=== PATIENT | female | born 1940 | race Caucasian/White ===

== ENCOUNTER 2020-03-13 01:17 | Emergency (ER) | payer OTHER, MEDICARE ==
--- OUTSIDE RECORDS SUMMARY | 2020-03-13 01:20 | XMS REPORT ---
:1940 Author Organization [facility] t Address [address] [place] [address] Dr. Villa. [address] [place] [id number] Care Team Providers Name Role Phone Unavailable Unavailable Unavailable Payers Payer Name Policy Type Policy Number Effective Date Expiration D ate Problems This patient has no known problems. Allergies, Adverse Reactions, Alerts This patient has no known allergies or adverse reactions. Medications This patient has no known medications.
--- NOTE | 2020-03-13 02:10 | ER ---
Nurse's Notes [facility] Name: Kiya Barbosa Age: 80 yrs Sex: Female : 1940 Arrival Date: 03/13/2020 Time: :19 Bed 5 Private MD: Diagnosis: Hypertension;Adverse reaction to medication Presentation: 03/13 01:20 Chief complaint: Patient states: that she used her Spiriva inhaler about 2100 and then fc shortly after that started to have high blood pressure 190's/90's, blurry vision and her head felt foggy. States that this was given to her by Bandoleer Packer but was due for recheck in January and could not go. Since then she has cut the Cande in half, stopped the Flonase but continued the Spiriva. Here tonight also for a chest xray. Coronavirus screen: Proceed with normal triage. Patient denies a cough. Patient denies shortness of breath or difficulty breathing. Patient denies measured and/or subjective temperature greater than 100.4F prior to today's visit. Patient denies travel on a cruise ship or to a country the [facility] currently lists as an affected area. Patient denies contact with known and/or suspected case of COVID-19. Ebola Screen: Patient negative for fever greater than or equal to 101.5 degrees Fahrenheit, and additional compatible Ebola Virus Disease symptoms. Initial Sepsis Screen: Does the patient meet any 2 criteria? No. Patient's initial sepsis screen is negative. Does the patient have a suspected source of infection? No. Patient's initial sepsis screen is negative. Risk Assessment: Do you want to hurt yourself or someone else? Patient reports no desire to harm self or others. Onset of symptoms was March 13, 2020. Transition of care: patient was not received from another setting of care. 01:20 Method Of Arrival: Ambulatory fc 01:20 Acuity: SOLA 3 fc Historical: - Allergies: :46 NKDA; fc - Home Meds: :46 Estrogen Patch daily [Active]; fc - PMHx: :46 Asthma; Bronchitis; fc - PSHx: 01:46 Hysterectomy; Cholecystectomy; Appendectomy; Tonsillectomy; fc - Immunization history:: Last tetanus immunization: unknown, Flu vaccine is up to date. - Social history:: Smoking status: Patient denies any tobacco usage or history of. Patient/guardian denies using alcohol, street drugs. Screenin:20 Abuse screen: Denies threats or abuse. Nutritional screening: No deficits noted. Tuberculosis screening: No symptoms or risk factors identified. Fall Risk None identified. 01:44 Abuse screen: Denies threats or abuse. Denies injuries from another. Nutritional mg2 screening: No deficits noted. Tuberculosis screening: No symptoms or risk factors identified. Fall Risk None identified. Assessment: 01:45 General: Appears in no apparent distress. comfortable, Behavior is calm. Pain: Denies mg2 pain. Neuro: Level of Consciousness is awake, alert, obeys commands, Oriented to person, place, time, situation. Cardiovascular: Capillary refill < 3 seconds Patient's skin is warm and dry. Respiratory: Airway is patent Respiratory effort is even, unlabored, Respiratory pattern is regular, symmetrical. GI: No signs and/or symptoms were reported involving the gastrointestinal system. : No deficits noted. EENT: Reports blurred vision. Derm: Skin is intact, is healthy with good turgor, Skin is pink, warm \T\ dry. normal. Musculoskeletal: Circulation, motion, and sensation intact. Capillary refill < 3 seconds. Vital Signs: 01:20 BP 164 / 88; Pulse 71; Resp 18; Temp 98.0(O); Pulse Ox 98% on R/A; Weight 95.25 kg (R); fc Height 5 ft. 7 in. (170.18 cm) (R); Pain 0/10; 02:16 BP 155 / 85; Pulse 70; Resp 19; Pulse Ox 99% on R/A; Pain 0/10; rr5 01:20 Body Mass Index 32.89 (95.25 kg, 170.18 cm) ED Course: 01:19 Patient arrived in ED. fj1 01:20 Arm band placed on Patient placed in an exam room, on a stretcher. 01:20 Patient has correct armband on for positive identification. Placed in gown. Bed in low fc position. Call light in reach. Pulse ox on. NIBP on. 01:20 pvc monitor on. rr5 01:20 No provider procedures requiring assistance completed. fc 01:22 Malissa Gooden FNP-C [facility]. kb 01:22 Cornelius Falcon MD is Attending Physician. kb 01:31 Heath Ernst, RN is Primary Nurse. rr5 01:44 Triage completed. fc 01:46 Patient did not have IV access during this emergency room visit. mg2 01:53 Chest Single View XRAY In Process Unspecified. EDMS 01:59 EKG done, by ED staff, reviewed by Cornelius Falcon MD. rr5 Administered Medications: No medications were administered Outcome: 02:09 Discharge ordered by MD. kb 02:16 Discharged to home ambulatory. rr5 02:16 Condition: stable 02:16 Discharge instructions given to patient, Instructed on discharge instructions, follow up and referral plans. Demonstrated understanding of instructions, follow-up care. 02:17 Patient left the ED. rr5 Signatures: Dispatcher [employer] EDMS Malissa Gooden, GABY-Noni CLAUDIOP-Imani Beauchamp, RN RN Ivan Gao RN RN mg2 Heath Ernst, RN RN rr5 Kiel Coleman fj1
--- NOTE | 2020-03-13 02:10 | EDPHYS ---
Physician Documentation [facility] Name: Kiya Barbosa Age: 80 yrs Sex: Female : 1940 Arrival Date: 03/13/2020 Time: 01:19 Bed 5 Private MD: ED Physician Cornelius Falcon HPI: 03/13 01:37 This 80 yrs old Female presents to ER via Unassigned with complaints of Blood kb Pressure Problem. 01:37 The patient has elevated blood pressure and discovered this at home, with a home kb device. Onset: The symptoms/episode began/occurred at 21:00. Modifying factors: The symptoms are aggravated by spiriva. Associated signs and symptoms: Pertinent positives: lightheadedness, visual changes, Pertinent negatives: chest pain, dizziness, dyspnea, headache, nausea, vomiting, weakness. Severity of symptoms: At its worst the blood pressure was 190 mm Hg. The patient has not experienced similar symptoms in the past. The patient has not recently seen a physician. Pt states she saw a stator plate washer in November and was started on catherine, spiriva and flonase. States she has never had to take medications before and thinks she is being overmedicated or that she doesn't need the medication anymore. States she started taking half of an catherine and stopped the flonase. Tonight she took her spiriva and it felt like it was too much and choked her. States she may have gotten worked up over it and it caused her bp to be high. Reports she was lightheaded and her vision seemed blurry so she took her bp and it was 190/90. States she feels better now. Reports she was supposed to have a follow up with her stator plate washer in January, but it was cancelled due to oropeza. Requests a CXR today because that was what she was supposed to have done in January at her follow up and maybe it could be sent to her stator plate washer and maybe she won't need to be on the medicines anymore. . Historical: - Allergies: :46 NKDA; fc - Home Meds: :46 Estrogen Patch daily [Active]; fc - PMHx: :46 Asthma; Bronchitis; fc - PSHx: :46 Hysterectomy; Cholecystectomy; Appendectomy; Tonsillectomy; fc - Immunization history:: Last tetanus immunization: unknown, Flu vaccine is up to date. - Social history:: Smoking status: Patient denies any tobacco usage or history of. Patient/guardian denies using alcohol, street drugs. ROS: 02:07 Constitutional: Negative for fever, chills, and weight loss, ENT: Negative for injury, kb pain, and discharge, Neck: Negative for injury, pain, and swelling, Cardiovascular: Negative for chest pain, palpitations, and edema, Respiratory: Negative for shortness of breath, cough, wheezing, and pleuritic chest pain, Abdomen/GI: Negative for abdominal pain, nausea, vomiting, diarrhea, and constipation, Back: Negative for injury and pain, MS/Extremity: Negative for injury and deformity, Skin: Negative for injury, rash, and discoloration. 02:07 Neuro: Positive for lightheaded. 02:07 Psych: Positive for anxiety. Exam: :07 Head/Face: Normocephalic, atraumatic. Eyes: Pupils equal round and reactive to light, kb extra-ocular motions intact. Lids and lashes normal. Conjunctiva and sclera are non-icteric and not injected. Cornea within normal limits. Periorbital areas with no swelling, redness, or edema. ENT: Nares patent. No nasal discharge, no septal abnormalities noted. Tympanic membranes are normal and external auditory canals are clear. Oropharynx with no redness, swelling, or masses, exudates, or evidence of obstruction, uvula midline. Mucous membranes moist. Neck: Trachea midline, no thyromegaly or masses palpated, and no cervical lymphadenopathy. Supple, full range of motion without nuchal rigidity, or vertebral point tenderness. No Meningismus. Chest/axilla: Normal chest wall appearance and motion. Nontender with no deformity. No lesions are appreciated. Cardiovascular: Regular rate and rhythm with a normal S1 and S2. No gallops, murmurs, or rubs. Normal PMI, no JVD. No pulse deficits. Respiratory: Lungs have equal breath sounds bilaterally, clear to auscultation and percussion. No rales, rhonchi or wheezes noted. No increased work of breathing, no retractions or nasal flaring. Abdomen/GI: Soft, non-tender, with normal bowel sounds. No distension or tympany. No guarding or rebound. No evidence of tenderness throughout. Skin: Warm, dry with normal turgor. Normal color with no rashes, no lesions, and no evidence of cellulitis. MS/ Extremity: Pulses equal, no cyanosis. Neurovascular intact. Full, normal range of motion. Neuro: Awake and alert, GCS 15, oriented to person, place, time, and situation. Cranial nerves II-XII grossly intact. Motor strength 5/5 in all extremities. Sensory grossly intact. Cerebellar exam normal. Normal gait. 02:07 Constitutional: The patient appears alert, awake, anxious. Vital Signs: 01:20 BP 164 / 88; Pulse 71; Resp 18; Temp 98.0(O); Pulse Ox 98% on R/A; Weight 95.25 kg (R); fc Height 5 ft. 7 in. (170.18 cm) (R); Pain 0/10; 02:16 BP 155 / 85; Pulse 70; Resp 19; Pulse Ox 99% on R/A; Pain 0/10; rr5 01:20 Body Mass Index 32.89 (95.25 kg, 170.18 cm) fc MDM: 01:23 Patient medically screened. kb 02:08 Data reviewed: vital signs, nurses notes. Data interpreted: Pulse oximetry: on room air kb is 98 %. Interpretation: normal. Counseling: I had a detailed discussion with the patient and/or guardian regarding: the historical points, exam findings, and any diagnostic results supporting the discharge/admit diagnosis, radiology results, the need for outpatient follow up, a family practitioner, to return to the emergency department if symptoms worsen or persist or if there are any questions or concerns that arise at home. 03/13 01:36 Order name: Chest Single View XRAY kb 03/13 01:44 Order name: EKG; Complete Time: 01:44 kb 03/13 01:44 Order name: EKG - Nurse/Tech; Complete Time: 01:47 kb Administered Medications: No medications were administered Disposition: 06:49 Co-signature as Attending Physician, Cornelius Falcon MD I agree with the assessment and tw4 plan of care. Disposition: 03/13/20 02:09 Discharged to Home. Impression: Hypertension, Adverse reaction to medication. - Condition is Stable. - Discharge Instructions: Hypertension, [id number]. - Medication Reconciliation Form, Thank You Letter, Antibiotic Education, Prescription Opioid Use form. - Follow up: Emergency Department; When: As needed; Reason: Worsening of condition. Follow up: Private Physician; When: 2 - 3 days; Reason: Recheck today's complaints, Continuance of care, Re-evaluation by your physician. Signatures: Dispatcher [employer] EDMalissa Kumar, WATERWAY TRAFFIC CHECKER-C WATERWAY TRAFFIC CHECKER-Imani Beauchamp, RN RN Cornelius Falcon MD MD tw4 Heath Ernst RN RN rr5 Corrections: (The following items were deleted from the chart) 02:10 02:09 03/13/2020 02:09 Discharged to Home. Impression: Hypertension. Condition is kb Stable. Forms are Medication Reconciliation Form, Thank You Letter, Antibiotic Education, Prescription Opioid Use. Follow up: Emergency Department; When: As needed; Reason: Worsening of condition. Follow up: Private Physician; When: 2 - 3 days; Reason: Recheck today's complaints, Continuance of care, Re-evaluation by your physician. kb 02:17 02:10 03/13/2020 02:09 Discharged to Home. Impression: Hypertension; Adverse reaction rr5 to medication. Condition is Stable. Forms are Medication Reconciliation Form, Thank You Letter, Antibiotic Education, Prescription Opioid Use. Follow up: Emergency Department; When: As needed; Reason: Worsening of condition. Follow up: Private Physician; When: 2 - 3 days; Reason: Recheck today's complaints, Continuance of care, Re-evaluation by your physician. kb
[2020-03-13 02:26] VITALS: TEMP 98
[2020-03-13 02:28] VITALS: BP 155/85; O2SAT 99
--- NOTE | 2020-03-13 07:02 | EKG ---
Test Date: 2020-03-13 Test Time: 01:52:44 [employer] Intermediary: RR MEASUREMENT RESULTS: Intervals: Rate: 64 SC: 180 QRSD: 144 QT: 442 QTc: 455 [place]: P: 45 SC: 180 QRS: -37 T: 0 INTERPRETIVE STATEMENTS: Sinus rhythm with premature atrial complexes Left axis deviation Right bundle branch block Abnormal ECG Compared to ECG 06/07/2013 00:43:59 Atrial premature complex(es) now present Left-axis deviation now present Sinus bradycardia no longer present Electronically Signed On 03-13-20 07:01:50 CDT by Edi Rogel
--- NOTE | 2020-03-13 07:28 | RAD REPORT ---
EXAM DESCRIPTION: Cheng Single View03/13/2020 1:53 am CLINICAL HISTORY: Shortness of breath COMPARISON: 2019 FINDINGS: The lungs appear clear of acute infiltrate. The heart is normal size IMPRESSION: No acute abnormalities displayed
== END 2020-03-13 02:17 | disposition home or self-care (01) ==
LOC: ER 01:17
DX: I10 Essential (primary) hypertension (principal); T44.3X5A Adverse effect of other parasympatholytics [anticholinergics and antimuscarinics] and spasmolytics, initial encounter; J45.909 Unspecified asthma, uncomplicated
CPT/HCPCS: 71045; 93005; 99284

== ENCOUNTER 2023-11-01 00:20 | Emergency (ER) | payer OTHER, MEDICARE ==
[2023-11-01] MEDS ORDERED: cloNIDine HCL 0.1 MG TAB ONE (01:08)
[2023-11-01 04:00] LABS: Protime INR 0.99
[2023-11-01 04:02] LABS: Absolute Lymphocytes (CBC) 2.9 K/uL (0.7-4.9); Hematocrit 40.4 % (36.0-45.0); Lymphocytes % 40.8 % (15.3-44.8); MCV 93.3 fL (80-100); MPV 8.6 fL (7.6-11.3); Platelets 237 thou/uL (152-406); RBC Red Blood Cell Count 4.33 M/uL (3.86-4.86)
[2023-11-01 04:21] LABS: Albumin 3.2 g/dL (3.4-5.0); Bilirubin Direct 0.2 mg/dL (0-0.2); Bilirubin Indirect, Calculated 0.6 mg/dL (0.2-0.8); Bilirubin Total 0.8 mg/dL (0.2-1.0); Magnesium 2.1 mg/dL (1.6-2.4); Potassium 3.8 mEq/L (3.5-5.1); Protein, Total 6.8 g/dL (6.4-8.2); Troponin High Sensitivity 7.3 pg/mL (<58.9)
--- NOTE | 2023-11-01 04:38 | EDPHYS ---
Physician Documentation [facility] Name: Kiya Barbosa Age: 83 yrs Sex: Female : 1940 Arrival Date: 11/01/2023 Time: 00:20 Bed 7 Private MD: ED Physician Harris Mcguire HPI: 11/01 00:27 This 83 yrs old Female presents to ER via Unassigned with complaints of High sp4 Blood Pressure, BUZZING IN EARS. 02:23 Is a very pleasant 83-year-old female with history of asthma. Patient states that she sp4 was prescribed cefdinir for strep throat on 10/27/2023. At midnight last night patient noticed her blood pressure was running high at 185/113 should notice the ringing in the ears. Patient is generally have blood pressure of 120/70. He is not on any medications for blood pressure.. Patient was concerned about her blood pressure and affect cefdinir may be increasing her blood pressure. She presents here for evaluation . Historical: - Allergies: 00:34 NKDA; jb4 - Home Meds: 00:34 cefdinir oral [Active]; jb4 - PMHx: 00:34 Bronchitis; Asthma; jb4 - PSHx: 00:34 Cholecystectomy; Appendectomy; hysterectomy; jb4 - Immunization history:: Adult Immunizations up to date. - Social history:: Smoking status: Patient denies any tobacco usage or history of. - Family history:: not pertinent. ROS: 02:23 Constitutional: Negative for fever, chills, and weight loss, negative elevated blood sp4 pressure positive for ringing in the ears 02:23 All other systems are negative, Exam: 02:23 Constitutional: This is a well developed, well nourished patient who is awake, alert, sp4 and in no acute distress. Head/Face: Normocephalic, atraumatic. Eyes: Pupils equal round and reactive to light, extra-ocular motions intact. Lids and lashes normal. Conjunctiva and sclera are not injected. Cornea within normal limits. Periorbital areas with no swelling, redness, or edema. ENT: Nares patent. No nasal discharge, no septal abnormalities noted. Tympanic membranes are normal and external auditory canals are clear. Oropharynx with no redness, swelling, or masses, exudates, or evidence of obstruction, uvula midline. Mucous membranes moist. Neck: Trachea midline, no thyromegaly or masses palpated, and no cervical lymphadenopathy. Supple, full range of motion without nuchal rigidity, or vertebral point tenderness. Chest/axilla: Normal chest wall appearance and motion. Nontender with no deformity. No lesions are appreciated. Cardiovascular: Regular rate and rhythm with a normal S1 and S2. No gallops, murmurs, or rubs. Normal PMI, no JVD. No pulse deficits. Respiratory: Lungs have equal breath sounds bilaterally, clear to auscultation and percussion. No rales, rhonchi or wheezes noted. No increased work of breathing, no retractions or nasal flaring. Abdomen/GI: Soft, non-tender, with normal bowel sounds. No distension or tympany. No guarding or rebound. No evidence of tenderness throughout. Back: No spinal tenderness. No costovertebral tenderness. Skin: Warm, dry with normal turgor. Normal color with no rashes, no lesions, and no evidence of cellulitis. MS/ Extremity: Pulses equal, no cyanosis. Neurovascular intact. Full, normal range of motion. Neuro: Awake and alert, GCS 15, oriented to person, place, time, and situation. Cranial nerves II-XII grossly intact. Motor strength 5/5 in all extremities. Sensory grossly intact. Psych: Awake, alert, with orientation to person, place and time. Behavior, mood, and affect are within normal limits 02:26 ECG was reviewed by the Attending Physician. EKG time 118 EKG reveals sinus rhythm at sp4 a rate of 62, left axis deviation, right bundle branch block, otherwise unremarkable EKG. Vital Signs: 00:33 BP 163 / 79; Pulse 69; Resp 16; Temp 97.8(TE); Pulse Ox 99% on R/A; Weight 90.72 kg jb4 (R); Height 5 ft. 7 in. (R); Pain 0/10; 01:00 BP 174 / 85; Pulse 59; Resp 18 S; Pulse Ox 100% on R/A; jw7 02:00 BP 128 / 69; Pulse 56; Resp 17; Pulse Ox 97% ; jj7 03:02 BP 124 / 70; Pulse 60; Resp 15; Pulse Ox 99% ; jj7 04:00 BP 136 / 68; Pulse 64; Resp 14; Pulse Ox 99% ; jj7 04:43 BP 118 / 49; Pulse 64; Resp 17; Pulse Ox 100% ; jj7 00:33 Body Mass Index 31.32 (90.72 kg, 170.18 cm) jb4 00:33 Pain Scale: Adult jb4 MDM: 00:28 Patient medically screened. sp4 04:37 Differential diagnosis: hypertensive crisis, Malignant HTN, CVA. Data reviewed: vital sp4 signs, nurses notes, old medical records, lab test result(s), EKG. Consideration of Admission/Observation Escalation of care including admission/observation considered. ED course: stable for discharge home with PO PRN Clonidine . 11/01 00:27 Order name: Basic Metabolic Panel; Complete Time: 04:33 sp4 11/01 00:27 Order name: CBC with Diff; Complete Time: 04:33 sp4 11/01 00:27 Order name: LFT's; Complete Time: 04:33 sp4 11/01 00:27 Order name: Magnesium; Complete Time: 04:33 sp4 11/01 00:27 Order name: NT PRO-BNP; Complete Time: 04:33 sp4 11/01 00:27 Order name: PT-INR; Complete Time: 04:20 sp4 11/01 00:27 Order name: Troponin HS; Complete Time: 04:33 sp4 11/01 00:27 Order name: EKG; Complete Time: 00:28 sp4 11/01 00:27 Order name: Cardiac monitoring; Complete Time: 01:25 sp4 11/01 00:27 Order name: EKG - Nurse/Tech; Complete Time: 01:25 sp4 11/01 00:27 Order name: IV Saline Lock; Complete Time: 00:49 sp4 11/01 00:27 Order name: Labs collected and sent; Complete Time: 00:50 sp4 11/01 00:27 Order name: O2 Per Protocol; Complete Time: 00:50 sp4 11/01 00:27 Order name: O2 Sat Monitoring; Complete Time: 00:50 sp4 EC:26 Rate is 62 beats/min. Rhythm is regular, Normal Sinus Rhythm. Left axis deviation sp4 noted. DE interval is normal. QRS interval is prolonged. QT interval is normal. No Q waves. T waves are Normal. No ST changes noted. Clinical impression: No evidence of ischemia. Interpreted by me. Reviewed by me. Administered Medications: 01:02 Drug: cloNIDine PO 0.1 mg PO once Route: PO; jj7 04:25 Follow up: Response: No adverse reaction jw7 04:52 Follow up: Response: Blood pressure is lowered jj7 Disposition Summary: 11/01/23 04:38 Discharge Ordered Notes: Location: Home sp4 Problem: new sp4 Symptoms: have improved sp4 Condition: Stable sp4 Diagnosis - Elevated blood-pressure reading, without diagnosis of hypertension sp4 Followup: sp4 - With: Private Physician - When: 7 - 10 days - Reason: Recheck today's complaints Discharge Instructions: - Discharge Summary Sheet sp4 - How to Take Your Blood Pressure, [id number] sp4 Forms: - Patient Portal Instructions sp4 Prescriptions: - clonidine HCl 0.1 mg Oral tablet - take 1 tablet ORAL route every 8 hours PRN elevated blood pressure > 180 mm sp4 Hg; 60 tablet; Refills: 0, Product Selection Permitted Signatures: Dispatcher [employer] Jared Singer, RN RN jb4 Wilner Saleem RN RN jj7 Harris Mcguire MD MD sp4 Valentina Cooney RN jw7
--- NOTE | 2023-11-01 04:38 | ER ---
Nurse's Notes [facility] Name: Kiya Barbosa Age: 83 yrs Sex: Female : 1940 Arrival Date: 11/01/2023 Time: 00:20 Bed 7 Private MD: Diagnosis: Elevated blood-pressure reading, without diagnosis of hypertension Presentation: 11/01 00:33 Chief complaint: Patient states: I am taking cefdinir for strep throat and I think it jb4 is causing me to have high blood pressure and a buzzing in my ear. Coronavirus screen: At this time, the client does not indicate any symptoms associated with coronavirus-19. Ebola Screen: No symptoms or risks identified at this time. Initial Sepsis Screen: Does the patient meet any 2 criteria? No. Patient's initial sepsis screen is negative. Does the patient have a suspected source of infection? No. Patient's initial sepsis screen is negative. Risk Assessment: Do you want to hurt yourself or someone else? Patient reports no desire to harm self or others. Onset of symptoms was October 31, 2023. Transition of care: patient was not received from another setting of care. 00:33 Method Of Arrival: Ambulatory jb4 00:33 Acuity: SOLA 3 jb4 Historical: - Allergies: 00:34 NKDA; jb4 - Home Meds: 00:34 cefdinir oral [Active]; jb4 - PMHx: 00:34 Bronchitis; Asthma; jb4 - PSHx: 00:34 Cholecystectomy; Appendectomy; hysterectomy; jb4 - Immunization history:: Adult Immunizations up to date. - Social history:: Smoking status: Patient denies any tobacco usage or history of. - Family history:: not pertinent. Screenin:37 [facility] ED Fall Risk Assessment (Adult) History of falling in the last 3 months, jj7 including since admission No falls in past 3 months (0 pts) Confusion or Disorientation No (0 pts) Intoxicated or Sedated No (0 pts) Impaired Gait No (0 pts) Mobility Assist Device Used No (0 pt) Altered Elimination No (0 pt) Score/Fall Risk Level 0 - 2 = Low Risk Oriented to surroundings, Maintained a safe environment, Educated pt \T\ family on fall prevention, incl call for assistance when getting out of bed. Abuse screen: Denies threats or abuse. Nutritional screening: No deficits noted. Tuberculosis screening: No symptoms or risk factors identified. Assessment: 00:37 General: Appears in no apparent distress. comfortable, Behavior is calm, cooperative, jj7 appropriate for age. Pain: Denies pain. Neuro: Reports. Neuro:. Cardiovascular: Reports HTN. THINKS IT'S A SIDE EFFECT TO THE ANTIBIOTIC SHE IS TAKING. 01:28 Reassessment: Patient appears in no apparent distress at this time. No changes from [facility] previously documented assessment. Patient and/or family updated on plan of care and expected duration. Pain level reassessed. Patient is alert, oriented x 3, equal unlabored respirations, skin warm/dry/pink. 02:30 Reassessment: Patient appears in no apparent distress at this time. No changes from [facility] previously documented assessment. Patient and/or family updated on plan of care and expected duration. Pain level reassessed. Patient is alert, oriented x 3, equal unlabored respirations, skin warm/dry/pink. 03:30 Reassessment: Patient appears in no apparent distress at this time. Patient and/or [facility] family updated on plan of care and expected duration. Pain level reassessed. Patient is alert, oriented x 3, equal unlabored respirations, skin warm/dry/pink. 04:25 Reassessment: Patient appears in no apparent distress at this time. No changes from [facility] previously documented assessment. Patient and/or family updated on plan of care and expected duration. Pain level reassessed. Patient is alert, oriented x 3, equal unlabored respirations, skin warm/dry/pink. Vital Signs: 00:33 BP 163 / 79; Pulse 69; Resp 16; Temp 97.8(TE); Pulse Ox 99% on R/A; Weight 90.72 kg jb4 (R); Height 5 ft. 7 in. (R); Pain 0/10; 01:00 BP 174 / 85; Pulse 59; Resp 18 S; Pulse Ox 100% on R/A; jw7 02:00 BP 128 / 69; Pulse 56; Resp 17; Pulse Ox 97% ; jj7 03:02 BP 124 / 70; Pulse 60; Resp 15; Pulse Ox 99% ; jj7 04:00 BP 136 / 68; Pulse 64; Resp 14; Pulse Ox 99% ; jj7 04:43 BP 118 / 49; Pulse 64; Resp 17; Pulse Ox 100% ; jj7 00:33 Body Mass Index 31.32 (90.72 kg, 170.18 cm) jb4 00:33 Pain Scale: Adult jb4 ED Course: 00:24 Patient arrived in ED. gm2 00:27 Harris Mcguire MD is Attending Physician. sp4 00:34 Triage completed. jb4 00:34 Arm band placed on right wrist. jb4 00:37 Patient has correct armband on for positive identification. Bed in low position. Call jj7 light in reach. Side rails up X2. Adult w/ patient. 00:37 Inserted saline lock: 20 gauge in right antecubital area, using aseptic technique. jj7 Blood collected. 00:50 Basic Metabolic Panel Sent. jj7 00:50 CBC with Diff Sent. jj7 00:50 LFT's Sent. jj7 00:50 Magnesium Sent. jj7 00:50 NT PRO-BNP Sent. jj7 00:50 PT-INR Sent. jj7 00:50 Troponin HS Sent. jj7 01:25 EKG done, by ED staff, reviewed by Harris Mcguire MD. jw7 04:20 Wilner Saleem, RN is Primary Nurse. jj7 04:44 No provider procedures requiring assistance completed. IV discontinued, intact, jj7 bleeding controlled, No redness/swelling at site. Pressure dressing applied. Administered Medications: 01:02 Drug: cloNIDine PO 0.1 mg PO once Route: PO; jj7 04:25 Follow up: Response: No adverse reaction jw7 04:52 Follow up: Response: Blood pressure is lowered jj7 Medication: 00:37 VIS not applicable for this client. jj7 Outcome: 04:38 Discharge ordered by . sp4 04:44 Discharged to home ambulatory, with significant other, jj7 04:44 Condition: improved 04:44 Discharge instructions given to patient, Instructed on discharge instructions, Demonstrated understanding of instructions, 04:59 Patient left the ED. jj7 Signatures: Jared Selby, RN RN jb4 Valentina Cooney RN RN jw7 Johnson, Juwairiyah, RN RN jj7 Potepalov, Sergey, MD MD sp4 Macey Vega gm2 Corrections: (The following items were deleted from the chart) 00:54 00:33 BP 163 / 79; Pulse 69bpm; Resp 16bpm; Pulse Ox 99% RA; 90.72 kg Reported; Height jb4 5 ft. 7 in. Reported; BMI: 31.3; Pain 0/10, Adult; jb4
[2023-11-01 05:33] VITALS: TEMP 97.8
[2023-11-01 05:38] VITALS: BP 118/49; O2SAT 100
--- NOTE | 2023-11-01 13:03 | EKG ---
Test Date: 2023-11-01 Test Time: 01:18:04 Layout Man: SAMINA MEASUREMENT RESULTS: Intervals: Rate: 62 NV: 176 QRSD: 146 QT: 474 QTc: 481 [place]: P: 68 NV: 176 QRS: -33 T: 84 INTERPRETIVE STATEMENTS: Sinus rhythm with premature atrial complexes Left axis deviation Right bundle branch block Abnormal ECG Compared to ECG 03/13/2020 01:52:44 No significant changes Electronically Signed On 11-01-23 13:02:56 TRACK PATROL by Mervin Rodriguez
== END 2023-11-01 04:59 | disposition home or self-care (01) ==
LOC: ER 00:20
DX: R03.0 Elevated blood-pressure reading, without diagnosis of hypertension (principal)
CPT/HCPCS: 36415; 80048; 80076; 83735; 83880; 84484; 85025; 85610; 93005